=== PATIENT | male | born 1965 | race American Indian/Alaskan Native ===

== ENCOUNTER 2018-05-10 13:58 | Emergency (ER) | payer OTHER ==
[2018-05-10 14:37] VITALS: BP 131/60
--- NOTE | 2018-05-10 16:17 | Emergency Department Report ---
Blank Doc - Documentation Documentation: This is a 52 y.o. male that presents with right knee pain and swelling x 2 days. Patient states when he got off work Wednesday there was increased swelling and he couldn't apply pressure. He denies injury. There continues to be swelling and decreased ROM. He is wearing knee compression which is controlling swelling. Ordered: xray of right knee Fast track for further evaluation.
--- NOTE | 2018-05-10 17:17 | XRay Report ---
FINAL REPORT EXAM: XR KNEE 3V RT HISTORY: anterior knee pain TECHNIQUE: AP, oblique, and lateral portable views of the right knee PRIORS: None. FINDINGS: No acute fracture or dislocation is seen. The soft tissues demonstrate a suprapatellar joint effusio n. Joint spaces are maintained and bony mineralization is normal. Spurring off the posterior patella is noted. Spurring off the tibial spines and lateral tibial platea u is also noted. IMPRESSION: No acute bony abnormality of the right knee. Joint effusion
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
[2018-05-10] MEDS ORDERED: IBUPROFEN PO ONE ×2 (19:25→19:28)
== END 2018-05-10 19:10 | disposition home or self-care (01) ==
LOC: ED 13:58
DX: M17.11 Unilateral primary osteoarthritis, right knee (principal); F17.200 Nicotine dependence, unspecified, uncomplicated
CPT/HCPCS: 99283